=== PATIENT | female | born 1985 | race Caucasian/White ===

== ENCOUNTER 2017-04-30 12:31 | Emergency (ER) | payer SELFPAY ==
[2017-04-30] MEDS ORDERED: CATAPRES PO ONE (14:42)
[2017-04-30] MEDS ORDERED: PERCOCET 5/325 PO ONE (14:42)
[2017-04-30] MEDS ORDERED: NACL 0.9% IR ONE (14:42)
[2017-04-30] MEDS ORDERED: MARCAINE 0.5% INFILTRATI ONE (14:42)
[2017-04-30] MEDS ORDERED: CLEOCIN IM ONE (14:42)
[2017-04-30 15:46] VITALS: BP 136/91
--- NOTE | 2017-04-30 16:02 | Emergency Department Report ---
Entered by DAWIT MORRISSEY, acting as scribe for JYOTI AGARWAL PA. - General Chief complaint: Skin/Abscess/Foreign Body Stated complaint: BOIL GROIN AREA Time Seen by Provider: 04/30/17 14:22 Source: patient Mode of arrival: Ambulatory Limitations: No Limitations - History of Present Illness Initial comments: 32 y/o female with a PMhx of HTN presents to the ED c/o a gradually worsening abscess on vaginal area that began 5 days ago. Rates pain a 10/10 in severity, which she describes as sharp in quality. Aggravated with movement and palpation , and alleviated with nothing. Reports associated chills and back pain, but she denies drainage, fever, abdominal pain, nausea, vomiting, headache, dizziness, chest pain, and SOB. Patient states she did not take her blood pressure medication today. UTD with tetanus. Applied OTC topical medication and warm compresses with some relief. Allergic to cephalexin monohydrate, sulfamethoxazole, and trimethoprim. MD complaint: abscess/boil, other (similar incident in the past) Onset/Timin -: days(s) Tetanus Up to Date: yes Location: genitals (left mons pubis area) Severity: severe Severity scale (0 -10): 10 Quality: sharp Consistency: constant Improves with: none Worsens with: palpation, movement Context: none Associated symptoms: denies other symptoms, chills, other Treatments Prior to Arrival: OTC topical medication, other (warm compresses) - Related Data Previous Rx's Medication Instructions Recorded Last Taken Type Acetaminophen/Codeine [Tylenol 1 tab PO Q6H PRN #12 tab 04/30/17 Unknown Rx /Codeine # 3 tab] Ondansetron [Zofran Odt] 4 mg PO Q8H PRN #30 tab.rapdis 04/30/17 Unknown Rx Sulfamethoxazole/Trimethoprim 1 each PO BID #20 tablet 04/30/17 Unknown Rx [Bactrim DS TAB] Allergies Allergy/AdvReac Type Severity Reaction Status Date / Time cephalexin monohydrate AdvReac Vomiting Verified 04/30/17 12:54 [From Keflex] sulfamethoxazole AdvReac Vomiting Verified 04/30/17 12:54 [From Bactrim] trimethoprim [From Bactrim] AdvReac Vomiting Verified 04/30/17 12:54 Abscess Boil HPI - HPI Chief Complaint: Skin/Abscess/Foreign Body Stated Complaint: BOIL GROIN AREA Duration: 5 Days Location: Other (left mons pubis area) Severity: Severe History: Yes Pain (to affected area on left mons pubis area), Yes Previous History (unknown cause), No Fever, No Purulent Drainage, No Numbness, No Foreign Body, No Insect Bite Home Medications: Previous Rx's Medication Instructions Recorded Last Taken Type Acetaminophen/Codeine [Tylenol 1 tab PO Q6H PRN #12 tab 04/30/17 Unknown Rx /Codeine # 3 tab] Ondansetron [Zofran Odt] 4 mg PO Q8H PRN #30 tab.rapdis 04/30/17 Unknown Rx Sulfamethoxazole/Trimethoprim 1 each PO BID #20 tablet 04/30/17 Unknown Rx [Bactrim DS TAB] Allergies/Adverse Reactions: Allergies Allergy/AdvReac Type Severity Reaction Status Date / Time cephalexin monohydrate AdvReac Vomiting Verified 04/30/17 12:54 [From Keflex] sulfamethoxazole AdvReac Vomiting Verified 04/30/17 12:54 [From Bactrim] trimethoprim [From Bactrim] AdvReac Vomiting Verified 04/30/17 12:54 ED Review of Systems Comment: All other systems reviewed and negative Constitutional: chills. denies: fever Eyes: denies: eye pain, eye discharge, vision change ENT: denies: ear pain, throat pain Respiratory: denies: cough, orthopnea, shortness of breath, SOB with exertion, SOB at rest, stridor, wheezing Cardiovascular: denies: chest pain, palpitations, dyspnea on exertion, orthopnea , edema, syncope, paroxysmal nocturnal dyspnea Endocrine: no symptoms reported Gastrointestinal: denies: abdominal pain, nausea, vomiting, diarrhea Genitourinary: denies: urgency, dysuria, discharge Musculoskeletal: back pain. denies: joint swelling, arthralgia, myalgia Skin: other (abscess on vaginal area). denies: rash, lesions Neurological: denies: headache, weakness, numbness, paresthesias, confusion, abnormal gait, vertigo Psychiatric: denies: anxiety, depression Hematological/Lymphatic: denies: easy bleeding, easy bruising ED Past Medical Hx - Past Medical History Previous Medical History?: Yes Hx Hypertension: Yes (on meds) - Surgical History Past Surgical History?: Yes Additional Surgical History: CYST REMOVED - Family History Family history: no significant - Social History Smoking Status: Current Some Day Smoker Substance Use Type: Alcohol Other Social History: single - Medications Home Medications: Home Medications Medication Instructions Recorded Confirmed Last Taken Type Acetaminophen/Codeine [Tylenol 1 tab PO Q6H PRN #12 tab 04/30/17 Unknown Rx /Codeine # 3 tab] Ondansetron [Zofran Odt] 4 mg PO Q8H PRN #30 tab.rapdis 04/30/17 Unknown Rx Sulfamethoxazole/Trimethoprim 1 each PO BID #20 tablet 04/30/17 Unknown Rx [Bactrim DS TAB] ED Physical Exam - General Limitations: No Limitations General appearance: alert, in no apparent distress - Head Head exam: Present: atraumatic, normocephalic, normal inspection - Eye Eye exam: Present: normal appearance, PERRL, EOMI. Absent: scleral icterus, conjunctival injection, nystagmus, periorbital swelling, periorbital tenderness Pupils: Present: normal accommodation - ENT ENT exam: Present: normal exam, normal orophraynx, mucous membranes moist, normal external ear exam - Neck Neck exam: Present: normal inspection, full ROM. Absent: tenderness, meningismus, lymphadenopathy, thyromegaly - Respiratory Respiratory exam: Present: normal lung sounds bilaterally. Absent: respiratory distress, wheezes, rales, rhonchi, stridor, chest wall tenderness, accessory muscle use, decreased breath sounds - Cardiovascular Cardiovascular Exam: Present: regular rate, normal rhythm, normal heart sounds. Absent: systolic murmur, diastolic murmur, S3, S4 - GI/Abdominal GI/Abdominal exam: Present: soft, normal bowel sounds. Absent: distended, tenderness, guarding, rebound, rigid - External exam: Present: normal external exam, erythema (left mons pubis), swelling (mons pubis), other (assessment left mons pubis). Absent: lesions, lacerations, ecchymosis, bleeding - Expanded Exam Expanded Female exam: Present: other (mons pubis erythema, abscess). Absent: vaginal laceration, tissue present in vagina, herpetic lesions, vulvar erythema, vulvar tenderness, foreign body - Extremities Exam Extremities exam: Present: normal inspection, full ROM, normal capillary refill. Absent: tenderness, pedal edema, joint swelling, calf tenderness - Back Exam Back exam: Present: normal inspection, full ROM. Absent: tenderness, CVA tenderness (R), CVA tenderness (L), muscle spasm, paraspinal tenderness, vertebral tenderness, rash noted - Neurological Exam Neurological exam: Present: alert, oriented X3, normal gait, reflexes normal. Absent: motor sensory deficit - Psychiatric Psychiatric exam: Present: normal affect, normal mood - Skin Skin exam: Present: warm, dry, intact, other (4x4 erythematous cellulitic abscess with flunctuance and induration on left mons pubis area). Absent: rash - Expanded Skin Exam Expanded Type of lesion: Present: abscess Distribution of rash: genitals (mons pubis) Description of rash: Present: size (4 cm), tenderness, erythematous, swelling, fluctuant, indurated. Absent: vesicular, blisters, bullous, petechial, purpuic , urticarial, crusting, discharge ED Course Vital Signs 04/30/17 04/30/17 12:55 14:55 Temperature 98 F Pulse Rate 71 71 Respiratory 18 18 Rate Blood Pressure 187/119 187/119 O2 Sat by Pulse 98 Oximetry Vital Signs 04/30/17 04/30/17 04/30/17 12:55 14:55 15:35 Temperature 98 F 98.6 F Pulse Rate 71 71 75 Respiratory 18 18 18 Rate Blood Pressure 187/119 187/119 165/101 O2 Sat by Pulse 98 98 Oximetry - Reevaluation(s) Reevaluation #1: 04/30/17 15:43 Given clindamycin 600 mg IV, Percocet 5/325 mg 2 tablets by mouth. Clonidine 0.2 mg by mouth for elevated blood pressure. Patient with elevated blood pressure and she take Bisprolol all which she says she took in the triage area. She had no adverse reaction from medication. It is allergic to sulfa and Keflex were reaction been vomiting. Says that she is taken both medication in the past with nausea medication and she did fine. - I & D Left Pubic Area Type of Procedure: Complex Site: Lt Mons Pubis Blade Size: 11 I & D Procedure: betadine prep, sterile drapes applied, sterile dressing applied , gauze wick placed Progress: Patient with abscess tl left mons pubis. area cleased with iodine and NS. 5 cc of 0.5 % marcaine injected. # 11 blade used to male 0.25 cm incision . Large amount of pus express from area, Malodorous. still with areas of induration. Packing placed. to return in 3 days for revaluation. TD vaccine UTD. done under sterile procedures ED Medical Decision Making - Medical Decision Making ED Course: Sent here report that she has access to her left vaginal area 5 days she's been putting warm compresses the site. Patient was cellulitis and abscess to left mons pubis. Procedure for incision and drainage done see procedure note for detail. He isn't given Percocet 5/325 2 mg by mouth and emergency room. She was also given clindamycin 600 mg I am without any adverse reaction. Will be discharged home on pain medication, antibiotic and antinausea medication. She reports that she has nausea when she takes Bactrim but they usually give i her nausea medication to take with it and she is okay with that. Patient instructed to return to emergency room 11/17/2016 for evaluation and possible removal of packing. Patient was undescended discharge instruction and treatment plan and discharged home in stable condition. A second blood pressure elevated in triage and she was given clonidine 0.2 mg and she also took her blood pressure medication in triage. Blood pressure is still elevated but it better. Patient does not have a primary care physician so I instructed her to follow up for [facility] to call tomorrow to schedule an appointment and keep a log of her blood pressure and bring to primary care visit with her for management of blood pressure. Procedure: Incision and drainage. See procedure note for detail Assessment/plan 1 abscess and cellulitis, genital 2 Encounter for incision and drainage of abscess. 3. Patient with elevated blood pressure with history of hypertension. Please follow up with [facility] for management of chronic blood pressure. Blood pressure medication as prescribed. Patient given 4 Zofran, Bactrim DS and Tylenol No. 3. She discharged home to return to the emergency room in 3 days for evaluation and removal of packing. ED Disposition Clinical Impression: Cellulitis of female genitalia, Abscess of female genitalia, Encounter for incision and drainage procedure, Elevated blood pressure reading with diagnosis of hypertension Disposition: TO HOME OR SELFCARE Is pt being admited?: No Does the pt Need Aspirin: No Condition: Stable Instructions: Hypertension (ED), Abscess Incision and Drainage (ED), Cellulitis (ED) Additional Instructions: Follow up at [facility] for management of chronic hypertension keep a lot of the blood pressure and take to [facility] with you for evaluation Keep affected area clean and dry Take medication as prescribed Apply warm compresses to affected area Do not drive or operate heavy machinery while taking Tylenol No. 3 as this medication will cause drowsiness Prescriptions: Acetaminophen/Codeine [Tylenol /Codeine # 3 tab] 1 tab PO Q6H PRN #12 tab PRN Reason: Pain Ondansetron [Zofran Odt] 4 mg PO Q8H PRN #30 tab.rapdis PRN Reason: Nausea Sulfamethoxazole/Trimethoprim [Bactrim DS TAB] 1 each PO BID #20 tablet Referrals: [facility] [Outside] - 05/05/17 return to, Emergency room [Other] - 05/03/17 Forms: Work/School Release Form(ED) This documentation as recorded by the [employer] farmer JASMINE,accurately reflects the service I personally performed and the decisions made by ,JYOTI AGARWAL PA.
== END 2017-04-30 16:10 | disposition home or self-care (01) ==
LOC: ED 12:31
DX: N76.4 Abscess of vulva (principal); I10 Essential (primary) hypertension; F17.210 Nicotine dependence, cigarettes, uncomplicated; Z88.1 Allergy status to other antibiotic agents; Z88.2 Allergy status to sulfonamides
CPT/HCPCS: 96372; 99282

== ENCOUNTER 2017-05-03 09:27 | Emergency (ER) | payer SELFPAY ==
[2017-05-03 11:37] VITALS: BP 160/92
--- NOTE | 2017-05-03 11:57 | Emergency Department Report ---
Entered by RIKY CALVO, acting as scribe for JYOTI AGARWAL PA. ED Recheck HPI - General Chief Complaint: Laceration/Recheck/Suture Stated Complaint: DRESSING CHANGE Time Seen by Provider: 05/03/17 11:15 Source: patient Mode of arrival: Ambulatory Limitations: No Limitations - History of Present Illness Initial Comments: 32 y/o female she is return in to have ocular removal from left genital area that was placed on a 30 09/19/2016. Patient's that she feels better and she remains on antibiotic. Pain is 4 out of 10 only with movement. Denies any fever or chills. Tylenol #3 makes pain better. Reports Minimal drainage from site. MD Complaint: wound re-check Onset/Timin -: days(s) Returns Today for: wound recheck, cellulitis follow-up Symptoms Since Prior Visit: no new symptoms Context: planned re-check Associated Symptoms: none Treatments Prior to Arrival: dressings, Given Antibiotics on, Given Pain Meds on - Related Data Previous Rx's Medication Instructions Recorded Last Taken Type Acetaminophen/Codeine [Tylenol 1 tab PO Q6H PRN #12 tab 04/30/17 Unknown Rx /Codeine # 3 tab] Ondansetron [Zofran Odt] 4 mg PO Q8H PRN #30 tab.rapdis 04/30/17 Unknown Rx Sulfamethoxazole/Trimethoprim 1 each PO BID #20 tablet 04/30/17 Unknown Rx [Bactrim DS TAB] Allergies Allergy/AdvReac Type Severity Reaction Status Date / Time cephalexin monohydrate AdvReac Vomiting Verified 04/30/17 12:54 [From Keflex] sulfamethoxazole AdvReac Vomiting Verified 04/30/17 12:54 [From Bactrim] trimethoprim [From Bactrim] AdvReac Vomiting Verified 04/30/17 12:54 ED Review of Systems Comment: All other systems reviewed and negative Constitutional: no symptoms reported Eyes: denies: vision change Respiratory: no symptoms reported Cardiovascular: denies: chest pain, palpitations, edema, syncope Gastrointestinal: denies: abdominal pain, nausea, vomiting Musculoskeletal: denies: back pain, arthralgia Skin: other (abscess with packing) Neurological: denies: headache, weakness, numbness, paresthesias, confusion, abnormal gait, vertigo ED Past Medical Hx - Past Medical History Previous Medical History?: Yes Hx Hypertension: Yes (on meds) - Surgical History Past Surgical History?: Yes Additional Surgical History: CYST REMOVED - Family History Family history: hypertension - Social History Smoking Status: Former Smoker Substance Use Type: None Other Social History: Single - Medications Home Medications: Home Medications Medication Instructions Recorded Confirmed Last Taken Type Acetaminophen/Codeine [Tylenol 1 tab PO Q6H PRN #12 tab 04/30/17 Unknown Rx /Codeine # 3 tab] Ondansetron [Zofran Odt] 4 mg PO Q8H PRN #30 tab.rapdis 04/30/17 Unknown Rx Sulfamethoxazole/Trimethoprim 1 each PO BID #20 tablet 04/30/17 Unknown Rx [Bactrim DS TAB] ED Physical Exam - General Limitations: No Limitations General appearance: alert, in no apparent distress - Head Head exam: Present: atraumatic, normocephalic, normal inspection - Eye Eye exam: Present: normal appearance, PERRL, EOMI. Absent: scleral icterus, conjunctival injection, nystagmus, periorbital swelling, periorbital tenderness Pupils: Present: normal accommodation - ENT ENT exam: Present: normal exam, normal orophraynx, mucous membranes moist, TM's normal bilaterally, normal external ear exam - Neck Neck exam: Present: normal inspection, full ROM. Absent: tenderness, meningismus, lymphadenopathy, thyromegaly - Respiratory Respiratory exam: Present: normal lung sounds bilaterally. Absent: respiratory distress, wheezes, rales, rhonchi, stridor, chest wall tenderness, accessory muscle use, decreased breath sounds, prolonged expiratory - Cardiovascular Cardiovascular Exam: Present: regular rate, normal rhythm, normal heart sounds, systolic murmur. Absent: bradycardia, tachycardia, irregular rhythm, S3, S4 - GI/Abdominal GI/Abdominal exam: Present: soft, normal bowel sounds. Absent: distended, tenderness, guarding, rebound, rigid, diminished bowel sounds - Extremities Exam Extremities exam: Present: normal inspection, full ROM, normal capillary refill. Absent: tenderness, pedal edema, joint swelling, calf tenderness - Back Exam Back exam: Present: normal inspection, full ROM. Absent: tenderness, CVA tenderness (R), CVA tenderness (L), muscle spasm, paraspinal tenderness, vertebral tenderness, rash noted - Neurological Exam Neurological exam: Present: alert, oriented X3, normal gait, reflexes normal. Absent: motor sensory deficit - Psychiatric Psychiatric exam: Present: normal affect, normal mood - Skin Skin exam: Present: warm, dry, normal color, other (wound to the left mons pubis with packing) - Expanded Skin Exam Expanded Type of lesion: Present: abscess (with Packing) Distribution of rash: genitals (left mons pubis) Description of rash: Present: size (1 cm x 1 cm of induration with small opening from incision.), tenderness, indurated. Absent: erythematous, petechial , purpuic, crusting, discharge, fluctuant (mild induration) ED Course Vital Signs 05/03/17 05/03/17 05/03/17 09:40 10:04 11:34 Temperature 98.2 F 98.2 F 98 F Pulse Rate 60 60 60 Respiratory 16 16 16 Rate Blood Pressure 163/105 Blood Pressure 160/92 [Left] Blood Pressure 163/105 [Right] O2 Sat by Pulse 99 99 99 Oximetry - Reevaluation(s) Reevaluation #1: 05/03/17 11:45 Packing removed from full and left mons pubis. Still mild induration and tender to palpate but no erythema and no drainage noted. Patient remained in antibiotics. ED Recheck MDM - Differential Diagnosis Wound Recheck, Cellultitis Recheck - Medical Decision Making ED Course: Patient presented to the emergency room for follow-up visits cellulitis, abscess reevaluation. She remains on Bactrim DS and Tylenol No. 3 which she says she takes as needed for pain. Wound cleansed with normal saline and sterile dry dressing placed inside. Patient informed to continue to place warm compresses and keep wound covered if starts draining. Wound appears much better and she was told to continue her antibiotics and to follow up with her primary care doctor in 3 days and if she does not have a primary care doctor she can follow up with [facility]. Assessment/plan 1. Encounter for removal of packing in and wound recheck. 2. Elevated blood pressure with history of hypertension-manual BP is 160/92 and patient blood pressure was elevated last time. She was instructed to keep a log of her blood pressure and to make an appointment with her primary care for management of high blood pressure. Patient discharged home in stable condition to follow up with her primary care physician, continued antibiotics and if she does not have a primary care physician she needs to follow up with some [facility]. ED Disposition Clinical Impression: Elevated blood pressure reading with diagnosis of hypertension, Encounter for wound re-check Disposition: DC-01 TO HOME OR SELFCARE Is pt being admited?: No Does the pt Need Aspirin: No Condition: Stable Instructions: Hypertension (ED), Abscess (ED), Acute Wound Care (ED) Additional Instructions: Continued to Take antibiotic as prescribed Her blood pressure was elevated on initial visit and also today. Pls follow Instruction given and keep a lot of a few blood pressure and called to set up an appointment with primary care for evaluation. You need to take your blood pressure medication every day Follow-up with your primary care physician in 3 days Keep affected area clean and dry. Followed discharge instruction on acute wound care . Please return to emergency room if you develop increasing redness, streaking, fever, difficulty moving in and the left forearm and increase in pain. Referrals: PRIMARY CARE, [Primary Care Provider] - 05/06/17 [facility] [Outside] - 05/06/17 Forms: Work/School Release Form(ED) This documentation as recorded by the [employer] farmer ELIZABETH,accurately reflects the service I personally performed and the decisions made by me,JYOTI AGARWAL PA.
== END 2017-05-03 12:09 | disposition home or self-care (01) ==
LOC: ED 09:27
DX: Z48.00 Encounter for change or removal of nonsurgical wound dressing (principal); I10 Essential (primary) hypertension; Z98.890 Other specified postprocedural states; Z87.891 Personal history of nicotine dependence; Z88.1 Allergy status to other antibiotic agents
CPT/HCPCS: 99283

== ENCOUNTER 2017-08-12 12:28 | Emergency (ER) | payer SELFPAY ==
[2017-08-12] MEDS ORDERED: HCTZ PO ONE (13:26)
[2017-08-12] MEDS ORDERED: ZESTRIL PO ONE (13:26)
[2017-08-12] MEDS ORDERED: TYLENOL PO ONE (14:24)
[2017-08-12] MEDS ORDERED: CATAPRES PO ONE (14:25)
--- NOTE | 2017-08-12 14:32 | Emergency Department Report ---
ED General Adult HPI - General Chief complaint: Fever Stated complaint: FEVER Time Seen by Provider: 08/12/17 13:56 Source: patient Mode of arrival: Ambulatory Limitations: No Limitations - History of Present Illness Initial comments: 32-year-old female past medical history diabetes type 2, hypertension presents with complaint of 3-4 days of sore throat. Denies significant fever or chills. Denies difficulty swallowing. Also states she has been out of her blood pressure medicines and hypertension medicines in 3 months. Awake alert and oriented 3 denies shortness of breath chest pain no trismus noted pooling no stridor noted on clinical exam. Onset/Timin -: days(s) Severity scale (0 -10): 2 Quality: aching Consistency: intermittent Worsens with: none Associated Symptoms: denies other symptoms Treatments Prior to Arrival: none - Related Data Previous Rx's Medication Instructions Recorded Last Taken Type Acetaminophen/Codeine [Tylenol 1 tab PO Q6H PRN #12 tab 04/30/17 Unknown Rx /Codeine # 3 tab] Ondansetron [Zofran Odt] 4 mg PO Q8H PRN #30 tab.rapdis 04/30/17 Unknown Rx Sulfamethoxazole/Trimethoprim 1 each PO BID #20 tablet 04/30/17 Unknown Rx [Bactrim DS TAB] Dextromethorphan/Benzocaine 1 each PO Q6H PRN #1 lozenge 08/12/17 Unknown Rx [Cepacol Sorethroat-Cough Celestina] Hydrochlorothiazide [HCTZ] 25 mg PO QDAY #30 tablet 08/12/17 Unknown Rx Lisinopril [Zestril] 10 mg PO QDAY #30 tablet 08/12/17 Unknown Rx Metformin HCl 500 mg PO BID #60 tablet 08/12/17 Unknown Rx Allergies Allergy/AdvReac Type Severity Reaction Status Date / Time cephalexin monohydrate AdvReac Vomiting Verified 04/30/17 12:54 [From Keflex] sulfamethoxazole AdvReac Vomiting Verified 04/30/17 12:54 [From Bactrim] trimethoprim [From Bactrim] AdvReac Vomiting Verified 04/30/17 12:54 ED Review of Systems ROS: Stated complaint: FEVER Other details as noted in HPI Constitutional: denies: chills, fever Eyes: denies: eye pain, eye discharge, vision change ENT: throat pain. denies: ear pain Respiratory: denies: cough, shortness of breath, wheezing Cardiovascular: denies: chest pain, palpitations Endocrine: no symptoms reported Gastrointestinal: denies: abdominal pain, nausea, diarrhea Genitourinary: denies: urgency, dysuria, discharge Musculoskeletal: denies: back pain, joint swelling, arthralgia Skin: denies: rash, lesions Neurological: denies: headache, weakness, paresthesias Psychiatric: denies: anxiety, depression Hematological/Lymphatic: denies: easy bleeding, easy bruising ED Past Medical Hx - Past Medical History Hx Hypertension: Yes (on meds) - Surgical History Additional Surgical History: CYST REMOVED - Social History Smoking Status: Former Smoker Substance Use Type: None - Medications Home Medications: Home Medications Medication Instructions Recorded Confirmed Last Taken Type Acetaminophen/Codeine [Tylenol 1 tab PO Q6H PRN #12 tab 04/30/17 Unknown Rx /Codeine # 3 tab] Ondansetron [Zofran Odt] 4 mg PO Q8H PRN #30 tab.rapdis 04/30/17 Unknown Rx Sulfamethoxazole/Trimethoprim 1 each PO BID #20 tablet 04/30/17 Unknown Rx [Bactrim DS TAB] Dextromethorphan/Benzocaine 1 each PO Q6H PRN #1 lozenge 08/12/17 Unknown Rx [Cepacol Sorethroat-Cough Celestina] Hydrochlorothiazide [HCTZ] 25 mg PO QDAY #30 tablet 08/12/17 Unknown Rx Lisinopril [Zestril] 10 mg PO QDAY #30 tablet 08/12/17 Unknown Rx Metformin HCl 500 mg PO BID #60 tablet 08/12/17 Unknown Rx ED Physical Exam - General Limitations: No Limitations General appearance: alert, in no apparent distress - Head Head exam: Present: atraumatic, normocephalic - Eye Eye exam: Present: normal appearance, PERRL, EOMI Pupils: Present: normal accommodation - ENT ENT exam: Present: normal exam, mucous membranes moist - Neck Neck exam: Present: normal inspection - Respiratory Respiratory exam: Present: normal lung sounds bilaterally. Absent: respiratory distress - Cardiovascular Cardiovascular Exam: Present: regular rate, normal rhythm. Absent: systolic murmur, diastolic murmur, rubs, gallop - GI/Abdominal GI/Abdominal exam: Present: soft, normal bowel sounds - Extremities Exam Extremities exam: Present: normal inspection - Back Exam Back exam: Present: normal inspection - Neurological Exam Neurological exam: Present: alert, oriented X3, CN II-XII intact, normal gait - Psychiatric Psychiatric exam: Present: normal affect, normal mood - Skin Skin exam: Present: warm, dry, intact, normal color. Absent: rash ED Course Vital Signs 08/12/17 08/12/17 08/12/17 12:34 13:04 13:05 Temperature 98.2 F 98.6 F Pulse Rate 93 H 84 Respiratory 20 20 20 Rate Blood Pressure 209/121 Blood Pressure 208/119 [Right] O2 Sat by Pulse 99 100 97 Oximetry 08/12/17 14:23 Temperature Pulse Rate 85 Respiratory 20 Rate Blood Pressure Blood Pressure 216/138 [Right] O2 Sat by Pulse 99 Oximetry ED Medical Decision Making - Lab Data Result diagrams: 08/12/17 14:50 08/12/17 14:50 - Medical Decision Making A/P: Pharyngitis, hyperglycemia, asymptomatic hypertension 1-refill on lisinopril and hydrochlorothiazide 2-refill on metformin 3-follow up with primary care 4- strep swab negative will treat patient empirically as per Dr. Mcduffie will also examine the patient 5-decrease in blood pressure achieved, vital signs acceptable for discharge. Patient reports no blurry vision headache chest pain shortness of breath nausea vomiting Critical care attestation.: If time is entered above; I have spent that time in minutes in the direct care of this critically ill patient, excluding procedure time. ED Disposition Clinical Impression: Pharyngitis Qualifiers: Pharyngitis/tonsillitis etiology: unspecified etiology Qualified Code(s): J02.9 - Acute pharyngitis, unspecified Disposition: DC-01 TO HOME OR SELFCARE Is pt being admited?: No Does the pt Need Aspirin: No Condition: Stable Instructions: Pharyngitis (ED), Hypertension (ED), Diabetes Mellitus Type 2 in Adults (ED) Prescriptions: Dextromethorphan/Benzocaine [Cepacol Sorethroat-Cough Celestina] 1 each PO Q6H PRN #1 lozenge PRN Reason: Sore Throat Hydrochlorothiazide [HCTZ] 25 mg PO QDAY #30 tablet Lisinopril [Zestril] 10 mg PO QDAY #30 tablet Metformin HCl 500 mg PO BID #60 tablet Referrals: MIRTA HYDE MD [Primary Care Provider] - 3-5 Days [facility] [place] [Outside] - 3-5 Days [facility] [Outside] - 3-5 Days Forms: Work/School Release Form(ED), Accompanied Note Time of Disposition: 17:18
[2017-08-12 14:38] LABS: Bilirubin,Urine NEG (Negative); Blood,Urine NEG (Negative); Ketones,Urine NEG (Negative); Leukocyte Esterase,Urine NEG (Negative); Mucus,Urine FEW /HPF; Nitrite,Urine NEG (Negative); Protein,Urine <15 mg/dL mg/dL (Negative); Urobilinogen,Urine < 2.0 mg/dL (<2.0)
[2017-08-12 15:46] LABS: Basophils % (Auto) 1.2 % (0.0-1.8); Eosinophils % (Auto) 3.9 % (0.0-4.3); Hematocrit 43.3 % (30.3-42.9); Hemoglobin 14.1 gm/dl (10.1-14.3); Mean Corpuscular HGB Conc 33 % (30-34); Mean Corpuscular Volume 79 fl (79-97); Platelet Count 311 K/mm3 (140-440); Red Blood Count 5.49 M/mm3 (3.65-5.03); Red Cell Distribution Width 14.4 % (13.2-15.2); White Blood Count 7.9 K/mm3 (4.5-11.0)
[2017-08-12 15:54] LABS: Mean Corpuscular Hemoglobin 26 pg (28-32)
[2017-08-12 16:00] LABS: Anion Gap 18 mmol/L; BUN/Creatinine Ratio 17; Blood Urea Nitrogen 12 mg/dL (7-17); Calcium 9.6 mg/dL (8.4-10.2); Carbon Dioxide 27 mmol/L (22-30); Glucose 334 mg/dL (65-100); Potassium 4.1 mmol/L (3.6-5.0); Sodium 136 mmol/L (137-145)
[2017-08-12] MEDS ORDERED: APRESOLINE IV ONE (16:13)
[2017-08-12] MEDS ORDERED: CLEOCIN 600 MG/50 mL 600 MG/50 ML BAG IV ONE (16:13)
[2017-08-12] MEDS ORDERED: NACL 0.9% 1000 ML 1,000 ML IV ONE (16:15)
[2017-08-12 17:59] VITALS: BP 142/75
== END 2017-08-12 18:10 | disposition home or self-care (01) ==
LOC: ED 12:28
DX: J02.9 Acute pharyngitis, unspecified (principal); I10 Essential (primary) hypertension; Z87.891 Personal history of nicotine dependence; Z88.1 Allergy status to other antibiotic agents; Z88.2 Allergy status to sulfonamides
CPT/HCPCS: 36415; 80048; 81001; 82962; 85025; 87116; 87430; 96361; 96365; 96375; 99283; J0360; J7030; J1815

== ENCOUNTER 2017-08-21 14:18 | Emergency (ER) | payer SELFPAY ==
[2017-08-21 15:24] LABS: Eosinophils % (Auto) 2.6 % (0.0-4.3); Hematocrit 39.9 % (30.3-42.9); Hemoglobin 13.4 gm/dl (10.1-14.3); Mean Corpuscular HGB Conc 34 % (30-34); Mean Corpuscular Hemoglobin 26 pg (28-32); Mean Corpuscular Volume 79 fl (79-97); Platelet Count 277 K/mm3 (140-440); Red Blood Count 5.07 M/mm3 (3.65-5.03); Red Cell Distribution Width 13.9 % (13.2-15.2); White Blood Count 6.8 K/mm3 (4.5-11.0)
[2017-08-21 15:52] LABS: Anion Gap 15 mmol/L; BUN/Creatinine Ratio 20; Blood Urea Nitrogen 12 mg/dL (7-17); Calcium 9.5 mg/dL (8.4-10.2); Carbon Dioxide 28 mmol/L (22-30); Chloride 102.7 mmol/L (98-107); Glucose 292 mg/dL (65-100); Potassium 3.9 mmol/L (3.6-5.0); Sodium 142 mmol/L (137-145)
[2017-08-21] MEDS ORDERED: TYLENOL PO ONE (16:36)
[2017-08-21] MEDS ORDERED: APRESOLINE IV ONE ×2 (16:36→19:05)
--- NOTE | 2017-08-21 16:42 | Emergency Department Report ---
ED General Adult HPI - General Chief complaint: High BP Stated complaint: NOEMI Time Seen by Provider: 08/21/17 16:06 Source: family, EMS Mode of arrival: Stretcher Limitations: No Limitations - History of Present Illness Initial comments: 32 yo female who comes in today due headache and elevated blood pressure. The patient states that she was seen one week ago for possible strep throat. She didn't have strep throat and was discharged home with lisinopril/hctz for her elevated blood pressure. Admits to a history of diabetes and hypertension. Blood pressure in the room on eval is currently 206/120. Describes the headache as aching, throbbin, frontal, left temporal, with no radiation, nausea , vomiting, or diaphoresis. -: unknown (Possible history of uncontrolled hypertension-unknown ) Location: head Radiation: non-radiation Severity scale (0 -10): 6 Quality: aching, other (throbbing ) Consistency: constant Improves with: medication (acetaminophen ) Worsens with: other (activity ) Associated Symptoms: denies other symptoms Treatments Prior to Arrival: none - Related Data Previous Rx's Medication Instructions Recorded Last Taken Type Acetaminophen/Codeine [Tylenol 1 tab PO Q6H PRN #12 tab 04/30/17 Unknown Rx /Codeine # 3 tab] Ondansetron [Zofran Odt] 4 mg PO Q8H PRN #30 tab.rapdis 04/30/17 Unknown Rx Sulfamethoxazole/Trimethoprim 1 each PO BID #20 tablet 04/30/17 Unknown Rx [Bactrim DS TAB] Clindamycin [Clindamycin CAP] 300 mg PO Q6H #28 capsule 08/12/17 Unknown Rx Dextromethorphan/Benzocaine 1 each PO Q6H PRN #1 lozenge 08/12/17 Unknown Rx [Cepacol Sorethroat-Cough Celestina] Hydrochlorothiazide [HCTZ] 25 mg PO QDAY #30 tablet 08/12/17 Unknown Rx Lisinopril [Zestril] 10 mg PO QDAY #30 tablet 08/12/17 Unknown Rx Metformin HCl 500 mg PO BID #60 tablet 08/12/17 Unknown Rx Lisinopril/Hydrochlorothiazide 1 tab PO QDAY #30 tab 08/22/17 Unknown Rx [Zestoretic 20-25 mg] Ondansetron [Zofran Odt] 4 mg PO Q8HR PRN #20 tab.rapdis 08/22/17 Unknown Rx amLODIPine [Norvasc] 5 mg PO DAILY #30 tab 08/22/17 Unknown Rx Allergies Allergy/AdvReac Type Severity Reaction Status Date / Time cephalexin monohydrate AdvReac Vomiting Verified 04/30/17 12:54 [From Keflex] sulfamethoxazole AdvReac Vomiting Verified 04/30/17 12:54 [From Bactrim] trimethoprim [From Bactrim] AdvReac Vomiting Verified 04/30/17 12:54 ED Review of Systems ROS: Stated complaint: NOEMI Other details as noted in HPI Constitutional: denies: chills, fever Eyes: denies: eye pain, eye discharge, vision change ENT: denies: ear pain, throat pain Respiratory: denies: cough, shortness of breath, wheezing Cardiovascular: denies: chest pain, palpitations Endocrine: no symptoms reported Gastrointestinal: denies: abdominal pain, nausea, diarrhea Genitourinary: denies: urgency, dysuria, discharge Musculoskeletal: denies: back pain, joint swelling, arthralgia Skin: denies: rash, lesions Neurological: as per HPI, headache Psychiatric: denies: anxiety, depression Hematological/Lymphatic: denies: easy bleeding, easy bruising ED Past Medical Hx - Past Medical History Previous Medical History?: Yes Hx Hypertension: Yes (on meds) Hx Diabetes: Yes - Surgical History Additional Surgical History: CYST REMOVED - Social History Smoking Status: Current Some Day Smoker Substance Use Type: Alcohol - Medications Home Medications: Home Medications Medication Instructions Recorded Confirmed Last Taken Type Acetaminophen/Codeine [Tylenol 1 tab PO Q6H PRN #12 tab 04/30/17 Unknown Rx /Codeine # 3 tab] Ondansetron [Zofran Odt] 4 mg PO Q8H PRN #30 tab.rapdis 04/30/17 Unknown Rx Sulfamethoxazole/Trimethoprim 1 each PO BID #20 tablet 04/30/17 Unknown Rx [Bactrim DS TAB] Clindamycin [Clindamycin CAP] 300 mg PO Q6H #28 capsule 08/12/17 Unknown Rx Dextromethorphan/Benzocaine 1 each PO Q6H PRN #1 lozenge 08/12/17 Unknown Rx [Cepacol Sorethroat-Cough Celestina] Hydrochlorothiazide [HCTZ] 25 mg PO QDAY #30 tablet 08/12/17 Unknown Rx Lisinopril [Zestril] 10 mg PO QDAY #30 tablet 08/12/17 Unknown Rx Metformin HCl 500 mg PO BID #60 tablet 08/12/17 Unknown Rx Lisinopril/Hydrochlorothiazide 1 tab PO QDAY #30 tab 08/22/17 Unknown Rx [Zestoretic 20-25 mg] Ondansetron [Zofran Odt] 4 mg PO Q8HR PRN #20 tab.rapdis 08/22/17 Unknown Rx amLODIPine [Norvasc] 5 mg PO DAILY #30 tab 08/22/17 Unknown Rx ED Physical Exam - General Limitations: No Limitations General appearance: alert, in no apparent distress - Head Head exam: Present: atraumatic, normocephalic - Eye Eye exam: Present: normal appearance - ENT ENT exam: Present: mucous membranes moist - Neck Neck exam: Present: normal inspection - Respiratory Respiratory exam: Present: normal lung sounds bilaterally. Absent: respiratory distress - Cardiovascular Cardiovascular Exam: Present: regular rate, normal rhythm. Absent: systolic murmur, diastolic murmur, rubs, gallop - GI/Abdominal GI/Abdominal exam: Present: soft, normal bowel sounds - Extremities Exam Extremities exam: Present: normal inspection - Back Exam Back exam: Present: normal inspection - Neurological Exam Neurological exam: Present: alert, oriented X3 - Psychiatric Psychiatric exam: Present: normal affect, normal mood - Skin Skin exam: Present: warm, dry, intact, normal color. Absent: rash ED Course Vital Signs 08/21/17 08/21/17 08/21/17 14:46 14:52 15:00 Temperature 98.4 F Pulse Rate 90 76 92 H Respiratory 18 16 15 Rate Blood Pressure 216/118 217/158 Blood Pressure [Right] O2 Sat by Pulse 99 92 Oximetry 08/21/17 08/21/17 08/21/17 15:11 15:21 15:30 Temperature Pulse Rate 79 76 80 Respiratory 15 9 L 20 Rate Blood Pressure 217/158 217/158 238/143 Blood Pressure [Right] O2 Sat by Pulse 98 97 100 Oximetry 08/21/17 08/21/17 08/21/17 15:41 15:51 16:00 Temperature 98.3 F Pulse Rate 62 70 67 Respiratory 16 12 11 L Rate Blood Pressure 245/140 233/119 Blood Pressure 233/119 [Right] O2 Sat by Pulse 98 100 100 Oximetry 08/21/17 08/21/17 08/21/17 16:01 16:11 16:21 Temperature Pulse Rate 78 73 74 Respiratory 12 20 19 Rate Blood Pressure 192/108 192/108 185/99 Blood Pressure [Right] O2 Sat by Pulse Oximetry 08/21/17 08/21/17 08/21/17 16:30 16:41 16:51 Temperature Pulse Rate 89 77 80 Respiratory 18 21 21 Rate Blood Pressure 206/120 206/120 206/121 Blood Pressure [Right] O2 Sat by Pulse Oximetry 08/21/17 08/21/17 08/21/17 17:00 17:11 17:21 Temperature Pulse Rate 84 78 71 Respiratory 21 30 H 25 H Rate Blood Pressure 220/135 220/135 220/135 Blood Pressure [Right] O2 Sat by Pulse Oximetry 08/21/17 08/21/17 08/21/17 17:30 17:41 17:51 Temperature Pulse Rate 84 85 97 H Respiratory 21 16 Rate Blood Pressure 214/127 214/127 189/96 Blood Pressure [Right] O2 Sat by Pulse Oximetry 08/21/17 08/21/17 08/21/17 17:56 18:01 18:11 Temperature Pulse Rate 82 90 108 H Respiratory 26 H 25 H Rate Blood Pressure 189/96 178/92 178/92 Blood Pressure [Right] O2 Sat by Pulse Oximetry 08/21/17 08/21/17 08/21/17 18:21 18:25 18:30 Temperature Pulse Rate 105 H 105 H 106 H Respiratory 15 13 24 Rate Blood Pressure 178/102 178/102 195/86 Blood Pressure [Right] O2 Sat by Pulse Oximetry 08/21/17 08/21/17 08/21/17 18:35 18:41 18:45 Temperature Pulse Rate 100 H 100 H 108 H Respiratory 21 21 25 H Rate Blood Pressure 195/86 195/86 195/86 Blood Pressure [Right] O2 Sat by Pulse Oximetry 08/21/17 08/21/17 08/21/17 18:51 18:55 19:00 Temperature Pulse Rate 97 H 96 H 103 H Respiratory 16 18 15 Rate Blood Pressure 216/128 216/128 205/123 Blood Pressure [Right] O2 Sat by Pulse 100 99 Oximetry 08/21/17 08/21/17 08/21/17 19:05 19:11 19:15 Temperature Pulse Rate 101 H 112 H Respiratory 22 21 18 Rate Blood Pressure 205/123 205/123 190/114 Blood Pressure [Right] O2 Sat by Pulse Oximetry 08/21/17 08/21/17 08/21/17 19:21 19:25 19:28 Temperature Pulse Rate 100 H 103 H Respiratory 17 23 Rate Blood Pressure 190/114 190/114 190/114 Blood Pressure [Right] O2 Sat by Pulse Oximetry 08/21/17 08/21/17 08/21/17 19:30 19:35 19:41 Temperature Pulse Rate 102 H 116 H 104 H Respiratory 22 16 22 Rate Blood Pressure 190/104 190/114 190/114 Blood Pressure [Right] O2 Sat by Pulse Oximetry 08/21/17 08/21/17 08/21/17 19:45 19:51 19:55 Temperature Pulse Rate 103 H 105 H 113 H Respiratory 17 19 22 Rate Blood Pressure 175/100 175/100 175/100 Blood Pressure [Right] O2 Sat by Pulse Oximetry 08/21/17 08/21/17 08/21/17 20:00 20:05 20:11 Temperature Pulse Rate 107 H 108 H 114 H Respiratory 18 23 22 Rate Blood Pressure 170/98 190/104 190/104 Blood Pressure [Right] O2 Sat by Pulse Oximetry 08/21/17 08/21/17 08/21/17 20:15 20:21 20:25 Temperature Pulse Rate 125 H 128 H 136 H Respiratory 20 18 22 Rate Blood Pressure 190/104 209/110 193/116 Blood Pressure [Right] O2 Sat by Pulse Oximetry 08/21/17 08/21/17 08/21/17 20:31 20:35 20:40 Temperature Pulse Rate 146 H 125 H 118 H Respiratory 21 22 21 Rate Blood Pressure 197/132 197/132 183/110 Blood Pressure [Right] O2 Sat by Pulse Oximetry 08/21/17 08/21/17 08/21/17 20:45 20:50 20:55 Temperature Pulse Rate 123 H 115 H 122 H Respiratory 16 18 28 H Rate Blood Pressure 183/110 184/99 184/99 Blood Pressure [Right] O2 Sat by Pulse Oximetry 08/21/17 08/21/17 08/21/17 21:01 21:05 21:11 Temperature Pulse Rate 121 H 124 H 114 H Respiratory 18 18 24 Rate Blood Pressure 196/130 196/130 196/130 Blood Pressure [Right] O2 Sat by Pulse Oximetry 08/21/17 08/21/17 08/21/17 21:15 21:20 21:24 Temperature Pulse Rate 120 H 109 H Respiratory 23 11 L 18 Rate Blood Pressure 166/111 189/102 Blood Pressure [Right] O2 Sat by Pulse 98 Oximetry 08/21/17 08/21/17 08/21/17 21:30 21:40 21:50 Temperature Pulse Rate 109 H 112 H 111 H Respiratory 16 32 H 19 Rate Blood Pressure 203/121 198/123 170/114 Blood Pressure [Right] O2 Sat by Pulse 98 Oximetry 08/21/17 08/21/17 08/21/17 22:01 22:11 22:21 Temperature Pulse Rate 114 H 141 H 108 H Respiratory 15 20 23 Rate Blood Pressure 170/114 170/114 170/114 Blood Pressure [Right] O2 Sat by Pulse Oximetry 08/21/17 08/21/17 08/21/17 22:31 22:41 22:51 Temperature Pulse Rate 106 H 102 H 109 H Respiratory 22 22 26 H Rate Blood Pressure 170/114 170/114 168/100 Blood Pressure [Right] O2 Sat by Pulse Oximetry 08/21/17 08/21/17 08/21/17 23:00 23:11 23:20 Temperature Pulse Rate 108 H 110 H 113 H Respiratory 22 21 21 Rate Blood Pressure 153/93 153/93 152/96 Blood Pressure [Right] O2 Sat by Pulse Oximetry 08/21/17 08/21/17 08/21/17 23:31 23:35 23:40 Temperature Pulse Rate 114 H 108 H 108 H Respiratory 23 24 20 Rate Blood Pressure 152/96 152/96 159/102 Blood Pressure [Right] O2 Sat by Pulse Oximetry 08/21/17 08/21/17 08/21/17 23:45 23:51 23:55 Temperature Pulse Rate 106 H 105 H 108 H Respiratory 22 22 24 Rate Blood Pressure 159/102 159/102 159/102 Blood Pressure [Right] O2 Sat by Pulse Oximetry 08/22/17 08/22/17 08/22/17 00:00 00:05 00:11 Temperature Pulse Rate 103 H 105 H 106 H Respiratory 20 23 26 H Rate Blood Pressure 162/105 162/105 162/105 Blood Pressure [Right] O2 Sat by Pulse Oximetry 08/22/17 00:15 Temperature Pulse Rate 106 H Respiratory 24 Rate Blood Pressure 162/105 Blood Pressure [Right] O2 Sat by Pulse Oximetry - Reevaluation(s) Reevaluation #1: 08/21/17 20:35 Went to evaluate the patient after treatment. The patient continues to say that there's something wrong. Suspect anxiety/depression. Mental health to evaluate the patient. Reevaluation #2: 08/22/17 00:23 Abdominal radiograph unremarkable. ED Medical Decision Making - Lab Data Result diagrams: 08/21/17 15:11 08/21/17 15:11 - EKG Data -: EKG Interpreted by De EKG shows normal: sinus rhythm Rate: normal - EKG Data When compared to previous EKG there are: previous EKG unavailable Interpretation: no acute changes, normal EKG - Radiology Data Radiology results: report reviewed Chest radiograph-no acute pathology Abdominal radiographs-no acute pathology - Medical Decision Making Anxiety PTSD Uncontrolled hypertension Diabetes mellitus - Differential Diagnosis anxiety, ptsd, uncontrolled hypertension, diabetes mellitus Critical care attestation.: If time is entered above; I have spent that time in minutes in the direct care of this critically ill patient, excluding procedure time. ED Disposition Clinical Impression: Anxiety, Post traumatic stress disorder (PTSD), Hypertension Disposition: - TO HOME OR SELFCARE Is pt being admited?: No Does the pt Need Aspirin: No Condition: Stable Instructions: Hypertension (ED) Additional Instructions: Take medicines as prescribed. Please establish with a provider on discharge. Please also establish with mental health on discharge. Prescriptions: amLODIPine [Norvasc] 5 mg PO DAILY #30 tab Lisinopril/Hydrochlorothiazide [Zestoretic 20-25 mg] 1 tab PO QDAY #30 tab Ondansetron [Zofran Odt] 4 mg PO Q8HR PRN #20 tab.rapdis PRN Reason: Nausea And Vomiting Referrals: PRIMARY CARE, [Primary Care Provider] - 3-5 Days Time of Disposition: 00:28
[2017-08-21] MEDS ORDERED: NACL 0.9% 1000 ML 1,000 ML IV ONE ×2 (18:31→20:34)
[2017-08-21] MEDS ORDERED: ZOFRAN IV ONE (19:07)
[2017-08-21 19:30] LABS: Bacteria,Urine 1+ /HPF (Negative); Bilirubin,Urine NEG (Negative); Blood,Urine NEG (Negative); Ketones,Urine TR mg/dL (Negative); Leukocyte Esterase,Urine NEG (Negative); Mucus,Urine FEW /HPF; Nitrite,Urine NEG (Negative); Protein,Urine <15 mg/dL mg/dL (Negative); Urobilinogen,Urine < 2.0 mg/dL (<2.0)
[2017-08-21 20:36] LABS: Urine Drugs of Abuse Note Disclamer
[2017-08-21] MEDS ORDERED: ATIVAN IM ONE (20:48)
[2017-08-21] MEDS ORDERED: REGLAN IV ONE (22:17)
--- NOTE | 2017-08-21 22:54 | XRay Report ---
FINAL REPORT EXAM: XR CXR CLINICAL INDICATIONS: CP FINDINGS: Single frontal view of the chest was acquired. The heart is normal in size. The lungs appear clear. The pleura and mediastinum are within normal limits. IMPRESSION: NO ACTIVE DISEASE IN THE CHEST
--- NOTE | 2017-08-22 00:16 | XRay Report ---
FINAL REPORT EXAM: XR ABDOMEN 2V HISTORY: abdominal pain TECHNIQUE: Two views of the abdomen were submitted. FINDINGS: The bowel gas pattern is within normal limits. There are multiple calcifications along the floor of the pelvis. The lung bases are clear. The skeletal structures do not show any acute changes. IMPRESSION: No acute process identified.
[2017-08-22 00:19] VITALS: BP 162/105
== END 2017-08-22 00:55 | disposition home or self-care (01) ==
LOC: ED 14:18
DX: F41.9 Anxiety disorder, unspecified (principal); F43.10 Post-traumatic stress disorder, unspecified; I10 Essential (primary) hypertension; E11.9 Type 2 diabetes mellitus without complications; F17.200 Nicotine dependence, unspecified, uncomplicated; Z88.2 Allergy status to sulfonamides; Z88.8 Allergy status to other drugs, medicaments and biological substances
CPT/HCPCS: 36415; 71010; 74020; 80048; 80307; 81001; 81025; 82805; 82962; 84484; 85025; 93005; 93010; 96361; 96374; 96375; 96376; 99285; J0360; J2060; J2405; J2765; J7030; J1815

== ENCOUNTER 2017-09-27 14:29 | Emergency (ER) | payer SELFPAY ==
[2017-09-27 15:49] VITALS: BP 170/122
[2017-09-27 16:19] LABS: Basophils # (Auto) 0.2 K/mm3 (0.0-0.1); Basophils % (Auto) 1.4 % (0.0-1.8); Eosinophils # (Auto) 0.1 K/mm3 (0.0-0.4); Eosinophils % (Auto) 1.2 % (0.0-4.3); Hematocrit 42.2 % (30.3-42.9); Hemoglobin 14.1 gm/dl (10.1-14.3); Lymphocytes # (Auto) 3.9 K/mm3 (1.2-5.4); Lymphocytes % (Auto) 35.3 % (13.4-35.0); Mean Corpuscular HGB Conc 33 % (30-34); Mean Corpuscular Volume 77 fl (79-97); Monocytes # (Auto) 0.9 K/mm3 (0.0-0.8); Monocytes % (Auto) 8.1 % (0.0-7.3); Platelet Count 375 K/mm3 (140-440); Red Cell Distribution Width 13.5 % (13.2-15.2)
[2017-09-27 16:21] LABS: BUN/Creatinine Ratio 20; Blood Urea Nitrogen 14 mg/dL (7-17); Hemolysis Index 5
[2017-09-27 16:28] LABS: Mean Corpuscular Hemoglobin 26 pg (28-32)
[2017-09-27 16:46] LABS: Bilirubin,Urine NEG (Negative); Blood,Urine NEG (Negative); Color,Urine Yellow (Yellow); Mucus,Urine FEW /HPF; Nitrite,Urine NEG (Negative); Protein,Urine <15 mg/dL mg/dL (Negative); Urobilinogen,Urine < 2.0 mg/dL (<2.0)
== END 2017-09-27 17:00 | disposition left against medical advice (07) ==
LOC: ED 14:29
DX: E86.0 Dehydration (principal); Z53.21 Procedure and treatment not carried out due to patient leaving prior to being seen by health care provider
CPT/HCPCS: 36415; 80048; 81001; 85025

== ENCOUNTER 2018-01-18 09:25 | Emergency (ER) | payer OTHER ==
[2018-01-18 10:40] VITALS: BP 226/137
[2018-01-18] MEDS ORDERED: CATAPRES ONE (10:43)
[2018-01-18] MEDS ORDERED: CATAPRES PO ONE (10:48)
[2018-01-18 11:12] LABS: Basophils # (Auto) 0.1 K/mm3 (0.0-0.1); Basophils % (Auto) 1.1 % (0.0-1.8); Eosinophils # (Auto) 0.2 K/mm3 (0.0-0.4); Hematocrit 41.6 % (30.3-42.9); Hemoglobin 14.3 gm/dl (10.1-14.3); Lymphocytes # (Auto) 2.3 K/mm3 (1.2-5.4); Lymphocytes % (Auto) 32.5 % (13.4-35.0); Mean Corpuscular HGB Conc 35 % (30-34); Mean Corpuscular Hemoglobin 27 pg (28-32); Mean Corpuscular Volume 78 fl (79-97); Monocytes # (Auto) 0.4 K/mm3 (0.0-0.8); Monocytes % (Auto) 6.3 % (0.0-7.3); Platelet Count 333 K/mm3 (140-440); Red Blood Count 5.35 M/mm3 (3.65-5.03); Red Cell Distribution Width 13.3 % (13.2-15.2)
[2018-01-18 11:29] LABS: BUN/Creatinine Ratio 13; Blood Urea Nitrogen 9 mg/dL (7-17); Calcium 9.1 mg/dL (8.4-10.2); Hemolysis Index 12
[2018-01-18 12:07] LABS: Bilirubin,Urine NEG (Negative); Blood,Urine LG (Negative); Color,Urine Yellow (Yellow); Protein,Urine <15 mg/dL mg/dL (Negative); Urobilinogen,Urine < 2.0 mg/dL (<2.0)
== END 2018-01-18 12:36 | disposition left against medical advice (07) ==
LOC: ED 09:25
DX: R03.0 Elevated blood-pressure reading, without diagnosis of hypertension (principal); Z53.21 Procedure and treatment not carried out due to patient leaving prior to being seen by health care provider
CPT/HCPCS: 36415; 80048; 81001; 85025